=== PATIENT | female | born 1970 | race Two or more races ===

== ENCOUNTER 2018-11-04 06:03 | Emergency (ER) | payer OTHER ==
[~2018-11-04] VITALS: Ht 167.6 cm; Wt 86.2 kg
[2018-11-04] MEDS ORDERED: EPINEPHrine HCL 1 MG/1 ML AMP SC ONE (07:45)
[2018-11-04] MEDS ORDERED: methylPREDNISolone SOD SUCC 125 MG/2 ML VL IM ONE (07:45)
[2018-11-04 07:52] VITALS: BP 148/83
== END 2018-11-04 08:21 | disposition home or self-care (01) ==
LOC: ER 06:03
DX: L23.9 Allergic contact dermatitis, unspecified cause (principal); I10 Essential (primary) hypertension; Z90.49 Acquired absence of other specified parts of digestive tract
CPT/HCPCS: 96372; 99283; J0171; J2930